=== PATIENT | female | born 1990 ===

== ENCOUNTER 2023-05-16 10:15 | Inpatient (IN) | payer BC ==
[2023-05-16] MEDS: Lactated Ringers 1,000 ML IV SCH ×2 (10:20→11:30)
[2023-05-16] MEDS ORDERED: Famotidine 20 MG/2 ML SDV ONE (10:29)
[2023-05-16] MEDS ORDERED: Ropivacaine 0.5% 5 MG/ML 30 ML SDV ONE ×2 (10:29→16:19)
[2023-05-16] MEDS ORDERED: Morphine 10 MG/ML SDV ONE (10:30)
[2023-05-16] MEDS ORDERED: Sodium Chloride 0.9% 10 ML Syringe FLUSH PRN (10:34)
[2023-05-16] MEDS ORDERED: Citric Acid/Sodium Citrate Solution 30 ML Cup PO ONE (10:34)
[2023-05-16] MEDS ORDERED: ceFAZolin 2 GM in Sodium Chloride 0.9% 50 ML IV ONE (10:34)
[2023-05-16] MEDS ORDERED: Sodium Chloride 0.9% 20 ML SDV IV PRN (10:34)
[2023-05-16] MEDS ORDERED: Sodium Chloride 0.9% 2.5 ML Syringe FLUSH PRN (10:34)
[2023-05-16] MEDS ORDERED: Oxytocin/0.9 % Sodium Chloride 30 UNIT/500 ML BAG IV SCH ×2 (10:45→13:45)
[2023-05-16 10:48] LABS: HEMATOCRIT 40.4 % (37.0-47.0); HEMOGLOBIN 13.9 g/dL (12.0-16.0); MEAN CORPUSCULAR HEMOGLOBIN 30.8 pg (28.0-32.0); MEAN CORPUSCULAR HGB CONC 34.4 g/dL (32.0-36.0); MEAN CORPUSCULAR VOLUME 89.4 fL (83.0-99.0); MEAN PLATELET VOLUME 11.3 fL (9.4-12.3); PLATELET COUNT,PLT 204 K/uL (150-400); RED BLOOD CELL COUNT 4.52 M/uL (4.10-5.30); WHITE BLOOD CELL COUNT,WBC 8.76 K/uL (3.9-11.3)
[2023-05-16] MEDS ORDERED: fentaNYL 100 MCG/2 ML SDV ONE (11:56)
[2023-05-16] MEDS ORDERED: ceFAZolin 2 GM Vial ONE ×2 (12:16→13:27)
[2023-05-16] MEDS ORDERED: Ondansetron 4 MG/2 ML SDV ONE ×2 (13:27→16:19)
[2023-05-16] MEDS ORDERED: Oxytocin 10 Units/1 ML SDV ONE (13:27)
[2023-05-16] MEDS ORDERED: ePHEDrine 50 MG/ML SDV ONE (13:27)
[2023-05-16] MEDS ORDERED: Dexamethasone 4 MG/ML 5 ML MDV ONE (13:27)
[2023-05-16] MEDS ORDERED: Bisacodyl 10 MG Supp RECTAL PRN (13:32)
[2023-05-16] MEDS ORDERED: Lanolin 100% Cream 7 GM Tube TOP PRN (13:32)
[2023-05-16] MEDS ORDERED: diphenhydrAMINE 50 MG/ML SDV IVPUSH PRN (13:32)
[2023-05-16] MEDS ORDERED: Misoprostol 200 MCG Tab RECTAL PRN (13:32)
[2023-05-16] MEDS ORDERED: Oxytocin 10 Units/1 ML SDV IM PRN (13:32)
[2023-05-16] MEDS ORDERED: Ondansetron 4 MG/2 ML SDV IVPUSH PRN ×2 (13:32→13:47)
[2023-05-16] MEDS ORDERED: Methylergonovine 0.2 MG/1 ML Amp IM PRN (13:32)
[2023-05-16] MEDS ORDERED: Acetaminophen 500 MG Tab PO PRN (13:32)
[2023-05-16] MEDS ORDERED: Lactated Ringers 1,000 ML IV SCH (13:45)
[2023-05-16 13:46] LABS: PH,UMBILICAL ARTERIAL 7.199 (7.18-7.38); PH,UMBILICAL VENOUS 7.275 (7.25-7.45)
[2023-05-16] MEDS ORDERED: Naloxone 0.4 MG/ML SDV IVPUSH PRN (13:47)
[2023-05-16] MEDS ORDERED: Morphine 2 MG/ML SYRINGE IVPUSH PRN (13:47)
[2023-05-16] MEDS ORDERED: HYDROmorphone 1 MG/ML Syringe IVPUSH PRN (13:47)
[2023-05-16] MEDS ORDERED: fentaNYL 50 MCG/ML SDV IVPUSH ONE (13:47)
[2023-05-16] MEDS ORDERED: Albuterol 0.083% 2.5 MG/3 ML Neb Soln NEB PRN (13:47)
[2023-05-16] MEDS ORDERED: ePHEDrine 50 MG/ML SDV IVPUSH PRN (13:47)
[2023-05-16] MEDS ORDERED: Metoclopramide 10 MG/2 ML SDV IVPUSH PRN (13:47)
[2023-05-16] MEDS: Ketorolac 30 MG/ML SDV IVPUSH SCH ×2 (14:11→20:19)
[2023-05-16] MEDS ORDERED: Acetaminophen 1,000 MG in Premix Bag 1 BAG IV SCH (15:00)
[2023-05-16] MEDS: Acetaminophen 1,000 MG in Premix Bag 1 BAG IV SCH ×2 (15:29→21:41)
[2023-05-16] MEDS: Docusate Sodium 100 MG Cap PO SCH (21:41)
[2023-05-17] MEDS: oxyCODONE 5 MG Tab PO PRN ×3 (01:06→18:51)
[2023-05-17] MEDS: Ketorolac 30 MG/ML SDV IVPUSH SCH ×2 (03:06→09:24)
[2023-05-17] MEDS: Acetaminophen 1,000 MG in Premix Bag 1 BAG IV SCH ×2 (03:14→09:51)
[2023-05-17 06:18] LABS: HEMATOCRIT 31.6 % (37.0-47.0); HEMOGLOBIN 11.1 g/dL (12.0-16.0)
[2023-05-17] MEDS: Docusate Sodium 100 MG Cap PO SCH ×2 (09:24→22:36)
[2023-05-17] MEDS ORDERED: Ketorolac 30 MG/ML SDV IVPUSH SCH (16:15)
[2023-05-17] MEDS: Ibuprofen 800 MG Tab PO PRN (22:36)
[2023-05-18] MEDS: Ibuprofen 800 MG Tab PO PRN ×2 (08:17→17:28)
[2023-05-18] MEDS: Docusate Sodium 100 MG Cap PO SCH ×2 (20:06)
[2023-05-19] MEDS: Ibuprofen 800 MG Tab PO PRN (08:06)
[2023-05-19] MEDS: oxyCODONE 5 MG Tab PO PRN (11:38)
[2023-05-19] MEDS: Docusate Sodium 100 MG Cap PO SCH (11:38)
== END 2023-05-19 12:10 | disposition home or self-care (01) | DRG 540 ==
LOC: MW.OB 10:15 → OBSVTOIN 12:35 → MW.OB 21:37
PROVIDERS: ADMIT Obstetrics & Gynecology; ATTEND Obstetrics & Gynecology
PROC: 0T9B70Z Drainage of Bladder with Drainage Device, Via Natural or Artificial Opening (ICD-10-PCS; 2023-05-16)
PROC: 10D00Z1 Extraction of Products of Conception, Low, Open Approach (ICD-10-PCS; principal; 2023-05-16 12:00)
DX: O36.63X0 Maternal care for excessive fetal growth, third trimester, not applicable or unspecified (principal); O40.3XX0 Polyhydramnios, third trimester, not applicable or unspecified; O26.843 Uterine size-date discrepancy, third trimester; Z37.0 Single live birth; Z3A.39 39 weeks gestation of pregnancy
CPT/HCPCS: 36415; 82803; 85014; 85018; 85027; 86592; 86850; 86900; 86901; A9270-GY; J0131; J0690; J1100; J1885; J2270; J2405; J2590; J2795; J3010; J3490; J7120